=== PATIENT | female | born 1985 | race Caucasian/White ===

== ENCOUNTER → 2017-07-28 06:44 | Outpatient (CLI) | payer BC, SELFPAY ==
[2017-07-31 12:53] LABS: HPV Reflexed? NOT INDICATED
== END ==
PROVIDERS: Visit Provider Obstetrics & Gynecology
DX: Z12.4 Encounter for screening for malignant neoplasm of cervix (principal)
CPT/HCPCS: 88175; G0145

== ENCOUNTER → 2019-02-12 15:14 | Outpatient (CLI) | payer OTHER, SELFPAY ==
[2019-02-12 17:48] LABS: Internal QC Validated? YES +Cl - CLEAR BKGD; Pregnancy, Urine Negative Negative
== END ==
PROVIDERS: Family Provider Family Medicine; PCP Family Medicine; Referring Provider Nurse Practitioner Family; Visit Provider Nurse Practitioner Family
DX: L70.0 Acne vulgaris (principal); Z79.899 Other long term (current) drug therapy
CPT/HCPCS: 81025

== ENCOUNTER → 2019-03-19 14:24 | Outpatient (CLI) | payer OTHER, SELFPAY ==
[2019-03-19 15:52] LABS: Internal QC Validated? YES +Cl - CLEAR BKGD; Pregnancy, Urine Negative Negative
== END ==
PROVIDERS: Family Provider Family Medicine; PCP Family Medicine; Referring Provider Nurse Practitioner Family; Visit Provider Nurse Practitioner Family
DX: L70.0 Acne vulgaris (principal); Z79.899 Other long term (current) drug therapy
CPT/HCPCS: 81025

== ENCOUNTER → 2019-04-23 14:12 | Outpatient (CLI) | payer OTHER, SELFPAY ==
[2019-04-23 16:03] LABS: Absolute Lymphocyte Count 1.84 X10^3/uL (0.83-4.51); Absolute Neutrophil Count 2.6 X10^3/uL (2.0-7.7); Basophil# 0.04 X10^3/uL; Basophil% 0.8 % (0-1); Eosinophil# 0.07 X10^3/uL; Eosinophils% 1.4 % (0-5); Hematocrit 37.2 % (37-47); Hemoglobin 12.3 g/dL (12.0-15.0); Lymphocyte # 1.84 X10^3/ul (4.0); Lymphocyte % 37.2 % (19-41); Mean Corp Hgb Conc 33.1 g/dL (32-36); Mean Corpuscular Hgb 30.7 pg (27.0-32.0); Mean Corpuscular Volume 92.8 fL (81-99); Monocyte# 0.43 X10^3/uL; Monocyte% 8.7 % (0-10); NRBC Flagged by Analyzer 0 % (0-5); Neutrophil # 2.56 X10^3/uL (2.7-7.7); Neutrophil % 51.7 % (47-70); Platelet Count 240 K/mm3 (150-450); RBC Distribution Width CV 12.3 % (11.6-14.6); RBC Distribution Width SD 41.8 fl (35.1-43.9); Red Blood Count 4.01 M/mm3 (4.2-5.4)
[2019-04-23 16:08] LABS: AST(SGOT) 27 U/L (15-37); Alanine Aminotransfer ALT/SGPT 22 U/L (13-56); Albumin, Serum 3.7 g/dL (3.2-5.0); Alkaline Phosphatase 50 U/L (45-117); Cholesterol 234 mg/dL (200); Globulin 3.7 g/dL (2.2-4.2); High Density Lipoprotein 66 mg/dL; Protein, Total 7.4 g/dL (6.4-8.2); Triglycerides 151 mg/dL; Very Low Density Lipoprotein 30 mg/dL (5-40)
[2019-04-23 16:09] LABS: Internal QC Validated? YES +Cl - CLEAR BKGD; Pregnancy, Urine Negative Negative
[2019-04-25 09:34] LABS: HCG BETA-SUBUNIT QUANT. < 1 mIU/mL (.)
== END ==
PROVIDERS: Family Provider Family Medicine; PCP Family Medicine; Referring Provider Nurse Practitioner Family; Visit Provider Nurse Practitioner Family
DX: L70.0 Acne vulgaris (principal); Z79.899 Other long term (current) drug therapy
CPT/HCPCS: 36415; 80061; 80076; 81025; 84702; 85025

== ENCOUNTER → 2019-05-28 13:52 | Outpatient (CLI) | payer OTHER, SELFPAY ==
[2019-05-28 16:12] LABS: Internal QC Validated? YES +Cl - CLEAR BKGD; Pregnancy, Urine Negative Negative
== END ==
PROVIDERS: Family Provider Family Medicine; PCP Family Medicine; Referring Provider Nurse Practitioner Family; Visit Provider Nurse Practitioner Family
DX: L70.0 Acne vulgaris (principal); Z79.899 Other long term (current) drug therapy
CPT/HCPCS: 81025

== ENCOUNTER → 2019-07-02 13:54 | Outpatient (CLI) | payer OTHER, SELFPAY ==
[2019-07-02 16:36] LABS: Internal QC Validated? YES +Cl - CLEAR BKGD; Pregnancy, Urine Negative Negative
== END ==
PROVIDERS: Family Provider Family Medicine; PCP Family Medicine; Referring Provider Nurse Practitioner Family; Visit Provider Nurse Practitioner Family
DX: L70.0 Acne vulgaris (principal); Z79.899 Other long term (current) drug therapy
CPT/HCPCS: 81025

== ENCOUNTER 2020-01-15 19:19 | Emergency (ER) | payer OTHER, SELFPAY ==
[2020-01-15 19:20] VITALS: BP 96/45; PULSE 90; RESP 17; TEMP 36.5; O2SAT 98; BMI 27.3
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
[2020-01-15] MEDS: fentaNYL 100 MCG/2 ML Ampul 50 MCG IV ×2 (19:35→20:16)
[2020-01-15 19:36] VITALS: BP 80/46; PULSE 71; RESP 26; O2SAT 98
--- NOTE | 2020-01-15 19:46 | NURSING ---
trauma blood started at 0745. Blood number [id number]. T: 97.7 (O)
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
[2020-01-15 19:51] VITALS: BP 98/56; PULSE 73; RESP 20; TEMP 36; O2SAT 98
[2020-01-15 19:54] VITALS: BP 101/74; PULSE 78; RESP 20; O2SAT 98
--- NOTE | 2020-01-15 19:54 | ED.RN ---
Mother in law at bedside.
[2020-01-15] MEDS: 0.9% Normal Saline 1,000 ML 999 ML IV ×2 (19:55→20:06)
--- NOTE | 2020-01-15 20:00 | ED.RN ---
Sent rings from [employer] [employer] with mother in law.
[2020-01-15 20:03] LABS: Absolute Lymphocyte Count 3.13 X10^3/uL (0.83-4.51); Absolute Neutrophil Count 8.3 X10^3/uL (2.0-7.7); Basophil# 0.03 X10^3/uL; Basophil% 0.2 % (0-1); Eosinophil# 0.02 X10^3/uL; Eosinophils% 0.2 % (0-5); Hematocrit 37.2 % (37-47); Hemoglobin 12.4 g/dL (12.0-15.0); Lymphocyte # 3.13 X10^3/ul (4.0); Lymphocyte % 26.1 % (19-41); Mean Corp Hgb Conc 33.3 g/dL (32-36); Mean Platelet Vol. 11.4 fl (6.2-12.0); Monocyte# 0.36 X10^3/uL; NRBC Flagged by Analyzer 0 % (0-5); Neutrophil % 69.1 % (47-70); Platelet Count 235 K/mm3 (150-450); RBC Distribution Width CV 12.3 % (11.6-14.6); RBC Distribution Width SD 42.1 fl (35.1-43.9)
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
[2020-01-15] MEDS: Ondansetron 4 MG/2 ML Vial IV (20:16)
[2020-01-15 20:20] VITALS: BP 119/56; PULSE 81; RESP 22; O2SAT 100
[2020-01-15 20:49] LABS: AST(SGOT) 912 U/L (15-37); Alanine Aminotransfer ALT/SGPT 754 U/L (13-56); Albumin, Serum 3.5 g/dL (3.2-5.0); Alkaline Phosphatase 55 U/L (45-117); Anion Gap 7 (5-15); BUN 15 mg/dL (7-18); BUN/Creat Ratio 14.6 RATIO (10-20); Bilirubin, Direct 0.08 mg/dL (0.00-0.30); Calcium,Total 8.5 mg/dL (8.5-10.1); Chloride 111 mmol/L (98-107); Creatinine, Serum 1.03 mg/dL (0.55-1.02); EST Glomerular Filtration Rate 65 mL/min (>60); Est Glom Filt Rate - Afr Amer 79 mL/min (>60); Estimated Creatinine Clearance 55.28 ml/min; Globulin 3.6 g/dL (2.2-4.2); Glucose 133 mg/dL (74-106); Lipase 1003 U/L (73-393); Potassium 3.6 mmol/L (3.5-5.1); Protein, Total 7.1 g/dL (6.4-8.2); Sodium Level 142 mmol/L (136-145)
== END 2020-01-15 20:30 | disposition short-term general hospital (02) ==
PROVIDERS: Emergency Provider Emergency Medicine; PCP Family Medicine
DX: S22.41XA Multiple fractures of ribs, right side, initial encounter for closed fracture (principal); S32.599A Other specified fracture of unspecified pubis, initial encounter for closed fracture; R74.0 Nonspecific elevation of levels of transaminase and lactic acid dehydrogenase [LDH]; M54.9 Dorsalgia, unspecified; S09.90XA Unspecified injury of head, initial encounter; S36.209A Unspecified injury of unspecified part of pancreas, initial encounter; V49.9XXA Car occupant (driver) (passenger) injured in unspecified traffic accident, initial encounter
CPT/HCPCS: 36430; 71045; 72170; 73552; 80048; 80076; 83690; 84484; 85025; 86850; 86900; 86901; 86920; 86921; 96374; 96375; 96376; 99285; J7030; J7040; P9016; A4216; J2405

== ENCOUNTER 2020-01-25 13:09 | Inpatient (IN) | payer OTHER, SELFPAY ==
[2020-01-25 13:29] VITALS: BMI 22.1
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
[2020-01-25 14:40] VITALS: BP 111/80; PULSE 78; RESP 16; TEMP 36.6; O2SAT 96
[2020-01-25] MEDS: oxyCODONE 5 MG Tablet PO ×2 (14:45→20:57)
[2020-01-25] MEDS: Acetaminophen 325 MG Tablet 975 MG PO ×2 (14:46→20:58)
[2020-01-25 15:58] LABS: M R Staph aureus DNA By PCR Negative (Negative); Probe Check PASS; Specimen Processing Control PASS; Staph aureus DNA By PCR POSITIVE (Negative)
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
[2020-01-25] MEDS: Gabapentin 300 MG Capsule PO (16:40)
[2020-01-25 16:53] VITALS: BMI 22.2
[2020-01-25 21:00] VITALS: BP 100/63; PULSE 91; RESP 16; TEMP 36.9; O2SAT 94
[2020-01-25] MEDS: MELATONIN 3 MG TABLET 6 MG PO (22:22)
[2020-01-25] MEDS: cycloBENZAPRine HCl 10 MG Tablet PO (22:22)
[2020-01-26 05:50] LABS: Absolute Lymphocyte Count 1.27 X10^3/uL (0.83-4.51); Basophil# 0.05 X10^3/uL; Basophil% 0.4 % (0-1); Eosinophil# 0.38 X10^3/uL; Hematocrit 29.9 % (37-47); Lymphocyte # 1.27 X10^3/ul (4.0); Lymphocyte % 9.9 % (19-41); Mean Corp Hgb Conc 33.4 g/dL (32-36); Mean Corpuscular Hgb 31.6 pg (27.0-32.0); Mean Corpuscular Volume 94.6 fL (81-99); Mean Platelet Vol. 8.7 fl (6.2-12.0); Monocyte# 0.99 X10^3/uL; Monocyte% 7.7 % (0-10); NRBC Flagged by Analyzer 0 % (0-5); Neutrophil # 10.01 X10^3/uL (2.7-7.7); Neutrophil % 77.8 % (47-70); Platelet Count 662 K/mm3 (150-450); RBC Distribution Width CV 13.2 % (11.6-14.6); RBC Distribution Width SD 44.8 fl (35.1-43.9); Red Blood Count 3.16 M/mm3 (4.2-5.4); White Blood Count 12.9 K/mm3 (4.4-11.0)
[2020-01-26 06:09] LABS: ALB/GLOB Ratio 0.6 RATIO (0.9-2.4); AST(SGOT) 33 U/L (15-37); Alanine Aminotransfer ALT/SGPT 46 U/L (13-56); Albumin, Serum 2.5 g/dL (3.2-5.0); Alkaline Phosphatase 134 U/L (45-117); Anion Gap 6 (5-15); BUN 10 mg/dL (7-18); Calcium,Total 8.5 mg/dL (8.5-10.1); Chloride 107 mmol/L (98-107); Creatinine, Serum 0.43 mg/dL (0.55-1.02); EST Glomerular Filtration Rate 177 mL/min (>60); Est Glom Filt Rate - Afr Amer 214 mL/min (>60); Globulin 4.2 g/dL (2.2-4.2); Glucose 93 mg/dL (74-106); Magnesium 2.2 mg/dL (1.6-2.6); Phosphorus 3.7 mg/dL (2.5-4.9); Potassium 3.9 mmol/L (3.5-5.1); Protein, Total 6.7 g/dL (6.4-8.2); Sodium Level 138 mmol/L (136-145)
[2020-01-26] MEDS: cycloBENZAPRine HCl 10 MG Tablet PO ×3 (06:22→22:00)
[2020-01-26] MEDS: oxyCODONE 5 MG Tablet PO ×3 (06:24→22:00)
[2020-01-26] MEDS: Acetaminophen 325 MG Tablet 975 MG PO ×3 (06:27→22:01)
[2020-01-26 07:05] VITALS: O2SAT 97
[2020-01-26 07:23] VITALS: BP 88/55; PULSE 98; RESP 16; TEMP 36.8; O2SAT 95
[2020-01-26] MEDS: Gabapentin 300 MG Capsule PO ×3 (07:45→17:00)
[2020-01-26] MEDS: Multivitamins,Therapeutic Tablet 1 TABLET PO (07:45)
[2020-01-26] MEDS: Senna/Docusate Sodium 1 Tablet 2 TABLET PO (07:46)
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
[2020-01-26] MEDS: Lidocaine 5% Patch 1 PATCH TOPICAL (10:57)
[2020-01-26] MEDS: Cefadroxil 500 MG CAPSULE 1000 MG PO ×2 (12:24→22:00)
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
[2020-01-26 15:03] VITALS: BP 96/60; PULSE 84
[2020-01-26] MEDS: Enoxaparin 40 MG/0.4 ML Syringe SC (17:38)
[2020-01-26 22:00] VITALS: BP 98/63; PULSE 75; RESP 16; TEMP 36.8; O2SAT 98
[2020-01-26] MEDS: LORazepam 1 MG Tablet PO (22:00)
[2020-01-26] MEDS: MELATONIN 3 MG TABLET 6 MG PO (22:00)
[2020-01-27 05:39] LABS: Hematocrit 32.3 % (37-47); Hemoglobin 10.2 g/dL (12.0-15.0)
[2020-01-27] MEDS: Enoxaparin 40 MG/0.4 ML Syringe SC (05:58)
[2020-01-27] MEDS: cycloBENZAPRine HCl 10 MG Tablet PO ×3 (05:58→22:00)
[2020-01-27] MEDS: oxyCODONE 5 MG Tablet PO ×4 (05:58→21:14)
[2020-01-27] MEDS: Acetaminophen 325 MG Tablet 975 MG PO ×3 (05:59→23:44)
[2020-01-27 07:35] VITALS: O2SAT 96
[2020-01-27] MEDS: Sertraline 50 MG Tablet PO (08:23)
[2020-01-27] MEDS: Lidocaine 5% Patch 1 PATCH TOPICAL (08:24)
[2020-01-27] MEDS: Multivitamins,Therapeutic Tablet 1 TABLET PO (08:24)
[2020-01-27] MEDS: Cefadroxil 500 MG CAPSULE 1000 MG PO ×2 (08:24→22:00)
[2020-01-27] MEDS: Gabapentin 300 MG Capsule PO ×3 (08:24→16:16)
[2020-01-27 08:31] VITALS: BP 94/65; PULSE 94; RESP 16; TEMP 36.9; O2SAT 99
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
--- NOTE | 2020-01-27 17:02 | CASEMGMT ---
Social Work IDT met with patient for Team meeting. Discussed patient's progress in therapy. Pt is CGA to min assit for transfers, ambulating 100 ft with FWW at CGA, Stalin for bathing, CGA for dressing. Pt reports to having night terrors. Meds adjusted and slept well last night. Pt still painful. Adjusting meds for depression, anxiety and PTSD. Will provide counseling resources at [place]. Nursing encouraging hydration. Explained [employer] insurance with [employer] 01/30 and continued stay is not guaranteed. IDT recommending continued therapy and nursing. Will continue to follow. Caterina Henry, MICHAEL BINDERY MACHINE FEEDER OFFBEARER
[2020-01-27 19:37] VITALS: BP 89/54; PULSE 87; RESP 17; TEMP 36.8; O2SAT 96
[2020-01-27] MEDS: MELATONIN 3 MG TABLET 6 MG PO (22:00)
[2020-01-27] MEDS: LORazepam 1 MG Tablet PO (22:00)
[2020-01-27] MEDS: Senna/Docusate Sodium 1 Tablet 2 TABLET PO (22:00)
--- NOTE | 2020-01-27 22:14 | CPS ---
PEP device pt. brought in to facility fell off her table and broke. New PEP device provided for pt.
[2020-01-28] MEDS: cycloBENZAPRine HCl 10 MG Tablet PO ×3 (04:21→21:37)
[2020-01-28] MEDS: oxyCODONE 5 MG Tablet PO ×4 (04:22→17:34)
[2020-01-28] MEDS: Acetaminophen 325 MG Tablet 975 MG PO (05:54)
[2020-01-28] MEDS: Enoxaparin 40 MG/0.4 ML Syringe SC (05:55)
[2020-01-28 06:59] VITALS: O2SAT 97
[2020-01-28 07:28] VITALS: BP 90/52; PULSE 82; RESP 16; TEMP 36.6; O2SAT 95
[2020-01-28] MEDS: Senna/Docusate Sodium 1 Tablet 2 TABLET PO ×2 (08:55→21:37)
[2020-01-28] MEDS: Gabapentin 300 MG Capsule PO ×3 (08:55→16:00)
[2020-01-28] MEDS: Cefadroxil 500 MG CAPSULE 1000 MG PO ×2 (08:55→21:37)
[2020-01-28] MEDS: Sertraline 50 MG Tablet PO (08:55)
[2020-01-28] MEDS: Multivitamins,Therapeutic Tablet 1 TABLET PO (08:55)
[2020-01-28] MEDS: Lidocaine 5% Patch 1 PATCH TOPICAL (08:55)
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
[2020-01-28 17:36] VITALS: BP 101/55; PULSE 90
[2020-01-28 19:40] VITALS: BP 107/61; PULSE 85; RESP 18; TEMP 36.9; O2SAT 97
[2020-01-28] MEDS: Arthritis Pain Compound 60 CLICK TUBE TOPICAL (21:36)
[2020-01-28] MEDS: LORazepam 1 MG Tablet PO (21:36)
[2020-01-28] MEDS: MELATONIN 3 MG TABLET 6 MG PO (21:37)
[2020-01-28] MEDS: Acetaminophen 500 MG Tablet 1000 MG PO (21:37)
[2020-01-29] MEDS: oxyCODONE 5 MG Tablet PO ×4 (00:07→17:14)
[2020-01-29] MEDS: Enoxaparin 40 MG/0.4 ML Syringe SC (06:32)
[2020-01-29] MEDS: Arthritis Pain Compound 60 CLICK TUBE TOPICAL ×3 (06:32→21:48)
[2020-01-29] MEDS: cycloBENZAPRine HCl 10 MG Tablet PO ×3 (06:32→21:48)
[2020-01-29] MEDS: Acetaminophen 500 MG Tablet 1000 MG PO ×3 (06:32→21:47)
[2020-01-29 07:26] LABS: Magnesium 2.1 mg/dL (1.6-2.6); Phosphorus 4.7 mg/dL (2.5-4.9)
[2020-01-29 07:46] VITALS: BP 92/53; PULSE 65; RESP 16; TEMP 36.6; O2SAT 95
[2020-01-29] MEDS: Sertraline 50 MG Tablet PO (08:55)
[2020-01-29] MEDS: Multivitamins,Therapeutic Tablet 1 TABLET PO (08:55)
[2020-01-29] MEDS: Cefadroxil 500 MG CAPSULE 1000 MG PO ×2 (08:55→21:48)
[2020-01-29] MEDS: Gabapentin 300 MG Capsule PO ×3 (08:55→17:14)
[2020-01-29 19:41] VITALS: BP 97/54; PULSE 88; RESP 16; TEMP 36.6; O2SAT 94
[2020-01-29] MEDS: MELATONIN 3 MG TABLET 6 MG PO (21:47)
[2020-01-29] MEDS: LORazepam 1 MG Tablet PO (21:48)
[2020-01-30] MEDS: Acetaminophen 500 MG Tablet 1000 MG PO ×3 (06:12→20:25)
[2020-01-30] MEDS: Enoxaparin 40 MG/0.4 ML Syringe SC (06:12)
[2020-01-30] MEDS: cycloBENZAPRine HCl 10 MG Tablet PO ×3 (06:12→20:25)
[2020-01-30] MEDS: Arthritis Pain Compound 60 CLICK TUBE TOPICAL ×3 (06:38→20:24)
[2020-01-30 07:31] VITALS: BP 92/55; PULSE 82; RESP 16; TEMP 36.8; O2SAT 96
[2020-01-30] MEDS: Gabapentin 300 MG Capsule PO ×3 (08:04→16:45)
[2020-01-30] MEDS: Multivitamins,Therapeutic Tablet 1 TABLET PO (08:04)
[2020-01-30] MEDS: Sertraline 50 MG Tablet PO (08:05)
[2020-01-30] MEDS: Cefadroxil 500 MG CAPSULE 1000 MG PO ×2 (08:05→20:24)
[2020-01-30] MEDS: oxyCODONE 5 MG Tablet PO ×2 (11:16→21:26)
[2020-01-30 19:23] VITALS: BP 90/56; PULSE 95; RESP 16; TEMP 36.7; O2SAT 96
[2020-01-30] MEDS: Senna/Docusate Sodium 1 Tablet 2 TABLET PO (20:26)
[2020-01-30] MEDS: LORazepam 1 MG Tablet PO (21:26)
[2020-01-30] MEDS: MELATONIN 3 MG TABLET 6 MG PO (21:26)
[2020-01-31 05:45] LABS: Absolute Lymphocyte Count 2.14 X10^3/uL (0.83-4.51); Absolute Neutrophil Count 5.1 X10^3/uL (2.0-7.7); Basophil# 0.11 X10^3/uL; Basophil% 1.3 % (0-1); Eosinophil# 0.41 X10^3/uL; Eosinophils% 4.7 % (0-5); Hematocrit 32.1 % (37-47); Hemoglobin 10.2 g/dL (12.0-15.0); Lymphocyte # 2.14 X10^3/ul (4.0); Lymphocyte % 24.5 % (19-41); Mean Corp Hgb Conc 31.8 g/dL (32-36); Mean Corpuscular Hgb 29.7 pg (27.0-32.0); Mean Corpuscular Volume 93.6 fL (81-99); Mean Platelet Vol. 8.4 fl (6.2-12.0); Monocyte# 0.89 X10^3/uL; Monocyte% 10.2 % (0-10); NRBC Flagged by Analyzer 0 % (0-5); Neutrophil # 5.11 X10^3/uL (2.7-7.7); Neutrophil % 58.3 % (47-70); POSITIVE COUNT YES; RBC Distribution Width CV 13.3 % (11.6-14.6); RBC Distribution Width SD 45.1 fl (35.1-43.9); Red Blood Count 3.43 M/mm3 (4.2-5.4); White Blood Count 8.8 K/mm3 (4.4-11.0)
[2020-01-31 05:52] LABS: Differential Indicated SCAN CRITERIA MET
[2020-01-31 05:53] LABS: Platelet Count 1138 K/mm3 (150-450)
--- NOTE | 2020-01-31 06:00 | NURSING ---
LAB REPORTS CRITICAL HIGH PLATELET COUNT. PAGE PLACED TO HOSPITALIST VIA [facility] GRIPPER MACHINE OPERATOR.
[2020-01-31 06:01] LABS: Anion Gap 5 (5-15); BUN 9 mg/dL (7-18); BUN/Creat Ratio 17.1 RATIO (10-20); Calcium,Total 8.8 mg/dL (8.5-10.1); Chloride 106 mmol/L (98-107); Creatinine, Serum 0.52 mg/dL (0.55-1.02); EST Glomerular Filtration Rate 142 mL/min (>60); Est Glom Filt Rate - Afr Amer 172 mL/min (>60); Estimated Creatinine Clearance 114.31 ml/min; Glucose 86 mg/dL (74-106); Potassium 3.9 mmol/L (3.5-5.1); Sodium Level 138 mmol/L (136-145)
--- NOTE | 2020-01-31 06:09 | NURSING ---
DR HOUGH NOTIFIED OF TODAY'S PLATELET CRITICAL HIGH LEVEL. NO NEW ORDERS AT THIS TIME.
[2020-01-31] MEDS: Enoxaparin 40 MG/0.4 ML Syringe SC (06:17)
[2020-01-31] MEDS: Acetaminophen 500 MG Tablet 1000 MG PO ×3 (06:18→21:23)
[2020-01-31] MEDS: Arthritis Pain Compound 60 CLICK TUBE TOPICAL ×3 (06:18→21:23)
[2020-01-31] MEDS: cycloBENZAPRine HCl 10 MG Tablet PO ×3 (06:19→21:23)
[2020-01-31 06:26] LABS: Platelet Estimate MKD INC (ADEQ)
--- NOTE | 2020-01-31 07:02 | NURSING ---
0630 sutures removed from chest tube site. inner part of the incision was noted was noted to be moist looking with a small scabbed area at the 2o'clock position. area cleansed with ns and covered with dsd, the day shift nurse made aware
[2020-01-31 07:23] VITALS: BP 95/60; PULSE 89; RESP 16; TEMP 36.7; O2SAT 96
[2020-01-31] MEDS: Sertraline 50 MG Tablet PO (08:09)
[2020-01-31] MEDS: Gabapentin 300 MG Capsule PO ×2 (08:09→11:31)
[2020-01-31] MEDS: Cefadroxil 500 MG CAPSULE 1000 MG PO ×2 (08:09→21:22)
[2020-01-31] MEDS: Multivitamins,Therapeutic Tablet 1 TABLET PO (08:09)
[2020-01-31] MEDS: Senna/Docusate Sodium 1 Tablet 2 TABLET PO ×2 (08:10→21:22)
[2020-01-31] MEDS: oxyCODONE 5 MG Tablet PO ×2 (11:18→20:36)
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
[2020-01-31 13:14] LABS: Pathologist Review Reviewed
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
--- NOTE | 2020-01-31 15:08 | CASEMGMT ---
Social Work Spoke with pt whom is requesting to DC home soon. Informed insurance update on this date, but IDT is agreeable to DC. Spoke with with insurance C.M. and issued DC date 02/01. Pt and IDT agreeable. Contacted [facility] to order FWW and [facility] PT/OT/SN/SW. [facility] to coordinate services and deliver FWW prior to DC. Faxed clinicals and script. Plan: DC home 02/01 with [facility] PT/OT/SN/SW, FWW Caterina Henry, TEST SKEIN WINDER RETAIL OFFICE ASSOCIATE
[2020-01-31] MEDS: Gabapentin 100 MG Capsule 200 MG PO (16:52)
[2020-01-31 20:30] VITALS: BP 97/55; PULSE 75; RESP 16; TEMP 36.8; O2SAT 97
[2020-01-31] MEDS: MELATONIN 3 MG TABLET 6 MG PO (21:22)
[2020-01-31] MEDS: LORazepam 1 MG Tablet PO (21:23)
[2020-02-01] MEDS: Enoxaparin 40 MG/0.4 ML Syringe SC (06:19)
[2020-02-01] MEDS: Acetaminophen 500 MG Tablet 1000 MG PO ×3 (06:19→21:19)
[2020-02-01] MEDS: cycloBENZAPRine HCl 10 MG Tablet PO ×3 (06:19→21:18)
[2020-02-01] MEDS: oxyCODONE 5 MG Tablet PO ×2 (06:20→13:34)
[2020-02-01] MEDS: Arthritis Pain Compound 60 CLICK TUBE TOPICAL ×3 (06:20→21:18)
[2020-02-01] MEDS: Senna/Docusate Sodium 1 Tablet 2 TABLET PO ×2 (08:27→21:18)
[2020-02-01] MEDS: Sertraline 50 MG Tablet PO (08:27)
[2020-02-01] MEDS: Cefadroxil 500 MG CAPSULE 1000 MG PO ×2 (08:28→21:18)
[2020-02-01] MEDS: Gabapentin 100 MG Capsule 200 MG PO ×3 (08:28→16:36)
[2020-02-01] MEDS: Multivitamins,Therapeutic Tablet 1 TABLET PO (08:28)
[2020-02-01 08:32] VITALS: BP 92/61; PULSE 60; RESP 16; TEMP 36.8; O2SAT 97
[2020-02-01] MEDS: MELATONIN 3 MG TABLET 6 MG PO (21:18)
[2020-02-01] MEDS: LORazepam 1 MG Tablet PO (21:19)
[2020-02-01 21:20] VITALS: BP 93/51; PULSE 79; RESP 16; TEMP 36.8; O2SAT 16; O2SAT 97
[2020-02-02] MEDS: Enoxaparin 40 MG/0.4 ML Syringe SC (06:12)
[2020-02-02] MEDS: cycloBENZAPRine HCl 10 MG Tablet PO ×2 (06:12→13:28)
[2020-02-02] MEDS: Acetaminophen 500 MG Tablet 1000 MG PO ×2 (06:12→13:27)
[2020-02-02] MEDS: Arthritis Pain Compound 60 CLICK TUBE TOPICAL (06:13)
[2020-02-02] MEDS: oxyCODONE 5 MG Tablet PO (07:56)
[2020-02-02] MEDS: Multivitamins,Therapeutic Tablet 1 TABLET PO (07:56)
[2020-02-02] MEDS: Cefadroxil 500 MG CAPSULE 1000 MG PO (07:57)
[2020-02-02] MEDS: Gabapentin 100 MG Capsule 200 MG PO ×2 (07:57→12:08)
[2020-02-02] MEDS: Sertraline 50 MG Tablet PO (07:57)
[2020-02-02 08:34] VITALS: BP 94/56; PULSE 92; RESP 16; TEMP 36.7; O2SAT 97
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
[2020-02-02 15:00] VITALS: BP 96/56; PULSE 70; RESP 16; TEMP 36.8; O2SAT 97
[2020-02-02 15:46] VITALS: BP 96/56; PULSE 70; RESP 16; TEMP 36.8; O2SAT 97
--- NOTE | 2020-02-02 15:48 | NURSING ---
Discharged home with . Discharge instructions, medications and appointments reviewed with pt and . denies questions or concerns.
== END 2020-02-02 15:50 | disposition home health service (06) | DRG 560 ==
PROVIDERS: Admitting Provider Internal Medicine; PCP Family Medicine; Visit Provider Internal Medicine
DX: S32.591D Other specified fracture of right pubis, subsequent encounter for fracture with routine healing (principal); D62 Acute posthemorrhagic anemia; L03.114 Cellulitis of left upper limb; S22.41XD Multiple fractures of ribs, right side, subsequent encounter for fracture with routine healing; S42.001D Fracture of unspecified part of right clavicle, subsequent encounter for fracture with routine healing; S32.19XD Other fracture of sacrum, subsequent encounter for fracture with routine healing; V49.50XD Passenger injured in collision with unspecified motor vehicles in traffic accident, subsequent encounter; S36.113D Laceration of liver, unspecified degree, subsequent encounter; S36.039D Unspecified laceration of spleen, subsequent encounter; S32.401D Unspecified fracture of right acetabulum, subsequent encounter for fracture with routine healing; Z87.891 Personal history of nicotine dependence; F43.10 Post-traumatic stress disorder, unspecified; B95.61 Methicillin susceptible Staphylococcus aureus infection as the cause of diseases classified elsewhere
CPT/HCPCS: 36415; 71046; 80048; 80053; 83735; 84100; 85014; 85018; 85025; 87070; 87077; 87186; 87205; 87640; 94667; 97110; 97116; 97161; 97162; 97166; 97530; 97535; 97802; 99251; G0463

== ENCOUNTER 2020-02-10 08:33 | Emergency (ER) | payer OTHER, SELFPAY ==
[2020-02-10 08:34] VITALS: BP 113/65; PULSE 94; RESP 17; TEMP 37.6; O2SAT 92; BMI 20.5
[2020-02-10 08:37] VITALS: BP 113/65; PULSE 94; RESP 17; TEMP 37.6; O2SAT 92
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
[2020-02-10 11:07] VITALS: BP 85/56; BP 88/61; PULSE 84; PULSE 88; RESP 17; RESP 18; TEMP 36.6; O2SAT 100
[2020-02-10 11:31] VITALS: BP 91/61; PULSE 84; RESP 18; O2SAT 99
[2020-02-10 11:49] VITALS: BP 81/52; PULSE 76; RESP 16; TEMP 36.6; O2SAT 98
== END 2020-02-10 11:51 | disposition home or self-care (01) ==
PROVIDERS: Emergency Provider Emergency Medicine; PCP Family Medicine
DX: R06.00 Dyspnea, unspecified (principal); S22.39XA Fracture of one rib, unspecified side, initial encounter for closed fracture; S27.329A Contusion of lung, unspecified, initial encounter; R07.9 Chest pain, unspecified; J90 Pleural effusion, not elsewhere classified; X58.XXXA Exposure to other specified factors, initial encounter; Z87.891 Personal history of nicotine dependence
CPT/HCPCS: 71046; 99282

== ENCOUNTER → 2020-11-13 09:14 | Outpatient (CLI) | payer OTHER, SELFPAY ==
--- NOTE | 2020-11-13 09:18 | US_ITS ---
STUDY: ULTRASOUND BREAST - RIGHT REASON FOR EXAM: Female, 34 years old. Pain in the right breast. TECHNIQUE: Axial and longitudinal images of the RIGHT breast were performed with a high resolution ultrasound transducer. # OF IMAGES: 47 COMPARISON: Comparison is made with prior mammogram done earlier today. FINDINGS: RIGHT Breast: The inferior and lateral aspect of the right breast was examined by ultrasound. No sonographic abnormality is seen. US/Breast Limited Unilateral IMPRESSION: No sonographic abnormality is seen. ASSESSMENT CATEGORY: BIRADS Category 1: Negative. A letter regarding these results will be sent to the patient by the facility within 30 days. Electronically Signed: Trey Rivera MD at 15:48 EDT , Service support ,
--- NOTE | 2020-11-13 09:18 | BI_ITS ---
MAMMOGRAPHY - BILATERAL DIAGNOSTIC REASON FOR EXAM: Female, 34 years old. Right lateral chest pain following prior right chest tube placement. PERTINENT HISTORY: Non-contributory. TECHNIQUE: Digital bilateral breast sheila (3D mammographic acquisition) in the CC and MLO projections. 2-D mediolateral oblique (MLO) and craniocaudad (CC) views of both breasts were obtained. CAD: Full Field Digital Mammography with Computer Added Detection was performed. COMPARISON: None. Baseline examination. FINDINGS: Breast Composition: The breasts are extremely dense, which lowers the sensitivity of mammography. There are no dominant masses or suspicious calcifications. No other significant abnormalities are identified. BI/DIAG MAMM W/CAD, BILAT IMPRESSION: Negative diagnostic mammogram. With the patient''s history of pain at the site of the right chest tube placement along the lateral aspect of the right breast, correlation with ultrasound is recommended. ASSESSMENT CATEGORY: BIRADS Category 0: Incomplete. Need additional imaging evaluation. A letter regarding these results will be sent to the patient by the facility within 30 days. Approximately 10% of breast cancers are not detected by mammography. A normal mammogram should not delay biopsy of a clinically suspicious abnormality. Electronically Signed: Trey Rivera MD at 10:14 EDT , Service support ,
== END ==
PROVIDERS: PCP Family Medicine; Referring Provider Obstetrics & Gynecology; Visit Provider Obstetrics & Gynecology
DX: N64.4 Mastodynia (principal)
CPT/HCPCS: 76642; 77062; 77066; G0279